=== PATIENT | male | born 1960 | race African-American/Black ===

== ENCOUNTER 2017-12-30 22:11 | Emergency (ER) | payer MEDICAID ==
[~2017-12-30] VITALS: Ht 175.3 cm; Wt 110.0 kg
[2017-12-31] MEDS ORDERED: AZITHROMYCIN 500 MG TABLET PO ONE (01:45)
[2017-12-31] MEDS ORDERED: CEFTRIAXONE SODIUM 250 MG/VIAL IM ONE (01:45)
[2017-12-31 02:00] VITALS: BP 141/75
== END 2017-12-31 02:30 | disposition home or self-care (01) ==
LOC: ER 22:11
DX: A64 Unspecified sexually transmitted disease (principal)
CPT/HCPCS: 96372; 99283; J0696